=== PATIENT | female | born 1960 | race Caucasian/White ===

== ENCOUNTER → 2021-10-09 | Outpatient (CLI) | payer OTHER ==
[2021-10-09 23:06] LABS: DHEA SO4 92.8 ug/dL (29.4-220.5); ESTRADIOL LEVEL <5.0 pg/mL (.); PROGESTERONE 0.5 ng/mL (.); TESTOSTERONE TOTAL 5 ng/dL (4-50)
== END ==
LOC: LAB 11:34
PROVIDERS: ATTEND Obstetrics & Gynecology
DX: Z79.890 Hormone replacement therapy (principal)
CPT/HCPCS: 36415; 82627; 82670; 84144; 84403